=== PATIENT | male | born 1960 | race Caucasian/White ===

== ENCOUNTER 2020-05-06 19:31 | Emergency (ER) | payer OTHER ==
[2020-05-06] MEDS ORDERED: Bacitracin Oint 1 GM U/D Packet TOP ONE (20:36)
--- NOTE | 2020-05-06 20:55 | EDM.PDOC ---
ED HPI GENERAL MEDICAL PROBLEM - General Chief Complaint: General Stated Complaint: FISH HOOK IN RIGHT ARM Time Seen by Provider: 05/06/20 20:36 Source of Information: Reports: Patient History Limitations: Reports: No Limitations - History of Present Illness INITIAL COMMENTS - FREE TEXT/NARRATIVE: chief complaint: fish hook to right upper arm This is a 59 year old male present to ER via pov, reports here for 09 of May weekend vacation, [place], going fishing and got a fish hook to the right upper arm. He is unable to remove it. Last Td a few months ago. No other concerns noted Onset: Today Onset Date: 05/06/20 Onset Time: 19:00 Duration: Constant Location: Reports: Upper Extremity, Right (fishhook- single prong in skin) Quality: Reports: Ache Severity: Mild Improves with: Reports: Immobilization Worsens with: Reports: Movement Context: Reports: Other (f.b. 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 Treatments - Related Data Allergies Allergy/AdvReac Type Severity Reaction Status Date / Time No Known Allergies Allergy Verified 05/06/20 20:44 Home Meds: Home Meds *Metoprolol 0 mg PO DAILY 05/06/20 [History] Past Medical History Cardiovascular History: Reports: Hypertension, Other (See Below) - Past Surgical History Cardiovascular Surgical History: Reports: Other (See Below) Other Cardiovascular Surgeries/Procedures: ascending aortic disection Social & Family History - Tobacco Use Smoking Status *Q: Never Smoker ED ROS GENERAL - Review of Systems Review Of Systems: See Below Constitutional: Reports: No Symptoms (no concerns except unable to remove fish hook to the right upper arm) Musculoskeletal: Reports: No Symptoms Skin: Reports: Other (fish hook in the right upper arm. injury occurs prior to arrival) ED EXAM, GENERAL - Physical Exam Exam: See Below Exam Limited By: No Limitations General Appearance: Alert, WD/WN, No Apparent Distress Neurological: Alert, Oriented, Normal Cognition Skin Exam: Warm, Dry, Other (fish hook noted to right upper arm- removed without complication) Foreign Body Removal - Pre-Procedure Indication: fish hook to right upper arm Consent Obtained: Reports: Patient Performing Doctor:: Cat White - Post-Procedure Findings:: fish hook -verbal consent, reports no allergies, last Td a few month ago -cleansed with Betadine -injected with Lidocaine 1% without Epi, anesthesia obtained -pushed single prong thru the skin, clipped with wire cutters -cleansed with Betadine -bactracin applied -discussed signs of infection and when to return to ER -verbalized understanding of instructions. Complications:: No Course - Vital Signs Last Recorded V/S: Last Vital Signs Temp 35.9 C L 05/06/20 20:50 Pulse 52 L 05/06/20 20:50 Resp 14 05/06/20 20:50 BP 130/85 05/06/20 20:50 Pulse Ox 99 05/06/20 20:50 - Orders/Labs/Meds Meds: Medications Discontinued Medications Generic Name Dose Route Start Last Admin Trade Name Tanya PRN Reason Stop Dose Admin Bacitracin 1 dose 05/06/20 20:36 05/06/20 20:51 Bacitracin Oint 1 Gm TOP 05/06/20 20:37 1 dose ONETIME ONE Administration Lidocaine HCl 5 ml 05/06/20 20:36 05/06/20 20:51 Xylocaine-Mpf 1% INJECT 05/06/20 20:37 5 ml ONETIME ONE Administration - Re-Assessments/Exams Free Text/Narrative Re-Assessment/Exam: fish hook removal-see procedure note, discussed sx and sx of infection. discharged to home Departure - Departure Time of Disposition: 20:51 Disposition: Home, Self-Care 01 Condition: Good Clinical Impression: Fish hook injury of right upper arm - Discharge Information *PRESCRIPTION DRUG MONITORING PROGRAM REVIEWED*: Not Applicable *COPY OF PRESCRIPTION DRUG MONITORING REPORT IN PATIENT DANIELITO: Not Applicable Instructions: Puncture Wound Referrals: PCP,None [Primary Care Provider] - Forms: ED Department Discharge Care Plan Goals: Fish Hook injury to right upper arm -fish hook removed -apply antibiotic ointment to puncture wound one to two times a day for 3 days then keep clean and dry -monitor for signs of infection- redness, swelling, drainage, fever, chills, nausea or increased pain -return to ER for any signs of infection or any concerns. Sepsis Event Note (ED) - Evaluation Sepsis Screening Result: No Definite Risk - Focused Exam Vital Signs: Vital Signs Temp Pulse Resp BP Pulse Ox 05/06/20 20:50 35.9 C L 52 L 14 130/85 99 05/06/20 20:38 35.9 C L 52 L 14 130/85 99 - Problem List & Annotations (1) Fish hook injury of right upper arm SNOMED Code(s): 945550470 Code(s): S49.91XA - UNSP INJURY OF RIGHT SHOULDER AND UPPER ARM, INIT ENCNTR Status: Acute Priority: High Current Visit: Yes - Problem List Review Problem List Initiated/Reviewed/Updated: Yes - Assessment/Plan Plan: Fish Hook injury to right upper arm -fish hook removed -apply antibiotic ointment to puncture wound one to two times a day for 3 days then keep clean and dry -monitor for signs of infection- redness, swelling, drainage, fever, chills, nausea or increased pain -return to ER for any signs of infection or any concerns.
== END 2020-05-06 21:04 | disposition home or self-care (01) ==
LOC: JP.ED 19:31
DX: S40.851A Superficial foreign body of right upper arm, initial encounter (principal); I10 Essential (primary) hypertension; Z79.899 Other long term (current) drug therapy; W45.8XXA Other foreign body or object entering through skin, initial encounter
CPT/HCPCS: 99282; J2001; 99283